=== PATIENT | male | born 1985 | race Caucasian/White ===

== ENCOUNTER 2020-05-02 03:02 | Emergency (ER) | payer MEDICAID ==
[~2020-05-02] VITALS: Ht 175.3 cm; Wt 99.2 kg
[2020-05-02] MEDS ORDERED: ONDANSETRON 2MG/ML, 2ML ONE ×2 (03:44→16:39)
[2020-05-02] MEDS ORDERED: MORPHINE SULFATE 4 MG/ML, 1ML ONE (03:44)
[2020-05-02] MEDS ORDERED: MORPHINE SULFATE 4 MG/ML, 1ML IVPush PRN (04:00)
[2020-05-02] MEDS ORDERED: SODIUM CHLORIDE FLUSH 10ML SYR IVF ONE (04:00)
[2020-05-02] MEDS ORDERED: ONDANSETRON 2MG/ML, 2ML IVPush ONE (04:00)
[2020-05-02] MEDS ORDERED: SODIUM CHLORIDE 0.9% 1,000ML IVBOLUS ONE (04:00)
[2020-05-02 04:14] LABS: BASOPHILS % (AUTO) 0 % (0-1); EOSINOPHILS % (AUTO) 0 % (1-7); LYMPHOCYTES % (AUTO) 8 % (22-44); MEAN CORPUSCULAR HEMOGLOBIN 28.8 pg (27.5-34.5); MEAN CORPUSCULAR HGB CONC 34.4 g/dL (33.2-36.2); MEAN PLATELET VOLUME 7.1 fL (7.4-10.4); MONOCYTES % (AUTO) 5 % (2-9); NEUTROPHILS % (AUTO) 88 % (42-75); PLATELET COUNT 315 x10^3/uL (130-400); RED CELL DISTRIBUTION WIDTH 13.9 % (9.4-14.8)
[2020-05-02 04:17] LABS: MD NO
[2020-05-02 04:23] LABS: ALANINE AMINOTRANSFERASE 133 U/L (12-78); ALBUMIN 3.9 g/dL (3.4-5.0); ANION GAP 5 mmol/L (5-15); CALCIUM 8.9 mg/dL (8.5-10.1); CHLORIDE 109 mmol/L (98-107); CREATININE 1.02 mg/dL (0.7-1.3)
[2020-05-02 04:26] LABS: ALKALINE PHOSPHATASE 90 U/L (45-117); BILIRUBIN,TOTAL 0.6 mg/dL (0.2-1.0); TOTAL PROTEIN 8.4 g/dL (6.4-8.2)
[2020-05-02] MEDS ORDERED: PIPERACILLIN/TAZO/PMX 3.375GM 50 ML ONE (04:47)
[2020-05-02] MEDS ORDERED: PIPERACILLIN/TAZO/PMX 3.375GM 50 ML IV ONE (05:00)
[2020-05-02 05:10] VITALS: BP 125/80
[2020-05-02] MEDS ORDERED: EPINEPHRINE 1 MG/ML, 1ML ONE (05:54)
[2020-05-02] MEDS ORDERED: BUPIVACAINE/PF 0.5% ONE (05:54)
[2020-05-02] MEDS ORDERED: MIDAZOLAM 1 MG/ML, 2ML ONE (06:02)
[2020-05-02] MEDS ORDERED: FENTANYL PF 100 MCG/2ML ONE ×2 (06:02→08:03)
[2020-05-02] MEDS ORDERED: BUPIVACAINE/PF-EPI 0.5% 1:200K INFIL ONE (06:23)
[2020-05-02] MEDS ORDERED: HYDROmorphone 1 MG/ML, 1ML INJ IVPush PRN (07:00)
[2020-05-02] MEDS ORDERED: OXYcodone 5 MG/5 ML ORAL.SOL UDC PO PRN (07:00)
[2020-05-02] MEDS ORDERED: KETOROLAC 30 MG/1 ML IVPush PRN (07:00)
[2020-05-02] MEDS ORDERED: PROMETHAZINE 25 MG/ML, 1ML IVPush PRN (07:00)
[2020-05-02] MEDS ORDERED: MEPERIDINE/PF 25MG/0.5ML IVPush PRN (07:00)
[2020-05-02] MEDS ORDERED: HYDROcodone/APAP 7.5-325MG/15ML UDC ONE (08:03)
[2020-05-02] MEDS: HYDROcodone/APAP 7.5-325MG/15ML UDC PO PRN ×2 (08:05→09:13)
[2020-05-02] MEDS: FENTANYL PF 100 MCG/2ML IV PRN ×4 (08:06→08:34)
[2020-05-02] MEDS ORDERED: morphine SULFATE 10 MG/ML, 1ML IVPush PRN (09:30)
[2020-05-02] MEDS ORDERED: SUCCINYLCHOLINE 20 MG/ML, 10ML ONE (16:39)
[2020-05-02] MEDS ORDERED: PROPOFOL 10 MG/ML, 20ML ONE (16:39)
[2020-05-02] MEDS ORDERED: ROCURONIUM 10MG/ML,5ML ONE (16:39)
[2020-05-02] MEDS ORDERED: PHENYLEPHRINE 10 MG/ML ONE (16:39)
[2020-05-02] MEDS ORDERED: SUGAMMADEX 200 MG/2 ML IVPush ONE (16:39)
[2020-05-02] MEDS ORDERED: DEXAMETHASONE 4 MG/ML, 1ML ONE (16:39)
== END 2020-05-02 11:30 ==
LOC: ED 04:53
DX: K80.00 Calculus of gallbladder with acute cholecystitis without obstruction (principal); K82.A1 Gangrene of gallbladder in cholecystitis; R94.5 Abnormal results of liver function studies; R10.11 Right upper quadrant pain; R11.2 Nausea with vomiting, unspecified; R10.13 Epigastric pain
CPT/HCPCS: 36415; 47562; 76700; 80053; 83690; 85025; 87635; 88304; 93005; 96361; 96365; 96375; 99285; C1760; J0171; J0330; J1100; J1885; J2250; J2270; J2370; J2405; J2543; J2704; J3010; J7030; S0020

== ENCOUNTER 2020-05-17 10:51 | Emergency (ER) | payer MEDICAID ==
[~2020-05-17] VITALS: Ht 175.3 cm; Wt 100.0 kg
--- NOTE | 2020-05-17 12:01 | NUR ---
PT REQUESTING STAPLE REMOVAL. PT HAD GALL BLADDER REMOVED WEEKS AGO AND NEEDS RAKESH REMOVED. PT DENIES PAIN AT THIS TIME.
[2020-05-17 12:38] VITALS: BP 127/84
--- NOTE | 2020-05-17 12:50 | NUR ---
STAPLE REMOVER USED TO REMOVE RAKESH FROM ABDOMEN FROM POST GALL BLADDER REMOVAL.
== END 2020-05-17 13:04 | disposition home or self-care (01) ==
LOC: ED 11:48
DX: Z48.815 Encounter for surgical aftercare following surgery on the digestive system (principal); Z48.02 Encounter for removal of sutures; Z90.49 Acquired absence of other specified parts of digestive tract
CPT/HCPCS: 99281